=== PATIENT | female | born 1965 ===

== ENCOUNTER → 2021-01-22 11:33 | Outpatient (CLI) | payer OTHER, MEDICAID, SELFPAY ==
--- NOTE | 2021-01-22 11:37 | DI.MRI.S_ITS ---
PROCEDURE: MR HEAD/BRAIN WO/W CON INDICATIONS: Progressive headaches with ongoing nausea, ataxia TECHNIQUE: Noncontrast axial T1 spin echo, axial T2 fast spin echo, sagittal and axial FLAIR, coronal T2 fast spin echo, axial gradient echo, axial diffusion and ADC through the brain. After the administration of contrast, axial and coronal 3D VIBE or T1 spin echo with fat saturation through the brain. COMPARISON: None. FINDINGS: Image quality: Excellent. CSF Spaces: Basal cisterns are patent. No extra-axial fluid collections. Ventricles are normal in size and shape. Brain: No midline shift. No intracranial bleeds or masses. No abnormal intracranial enhancement. The brainstem appears normal. Diffusion-weighted images demonstrate no acute ischemic insults. No chronic ischemic insults. Normal intravascular flow voids are present. Skull and face: Calvarial marrow is normal in signal. Orbits appear normal. Sinuses: Sinuses and mastoids appear clear. IMPRESSION: No evidence of acute ischemia. No acute intracranial signal abnormality or enhancement. Dictated by: Derrick Real M.D. on 01/22/2021 at 12:56 Approved by: Derrick Real M.D. on 01/22/2021 at 12:59
== END ==
PROVIDERS: PCP Family Medicine; Referring Provider Family Medicine; Visit Provider Family Medicine
DX: G44.83 Primary cough headache (principal); M41.85 Other forms of scoliosis, thoracolumbar region; M43.02 Spondylolysis, cervical region; M43.06 Spondylolysis, lumbar region; R11.0 Nausea; R27.0 Ataxia, unspecified
CPT/HCPCS: 70553

== ENCOUNTER → 2021-09-21 08:56 | Outpatient (CLI) | payer OTHER, MEDICAID, SELFPAY ==
[2021-09-21 20:14] LABS: COVID19 - ORCAS (NP or Nasal) Negative (Negative)
== END ==
PROVIDERS: PCP Family Medicine; Visit Provider Physician Assistant
DX: Z20.822 Contact with and (suspected) exposure to COVID-19 (principal)
CPT/HCPCS: U0003

== ENCOUNTER → 2021-09-24 12:33 | Outpatient (CLI) | payer OTHER, MEDICAID, SELFPAY | PROVIDERS: PCP Family Medicine; Visit Provider Family Medicine | DX: J02.9 Acute pharyngitis, unspecified (principal) | CPT/HCPCS: 87070; 87880 ==

== ENCOUNTER → 2021-09-25 08:27 | Outpatient (CLI) | payer OTHER, MEDICAID, SELFPAY ==
[2021-09-25 20:45] LABS: COVID19 - ORCAS (NP or Nasal) Negative (Negative)
== END ==
PROVIDERS: PCP Family Medicine; Visit Provider Family Medicine
DX: J02.9 Acute pharyngitis, unspecified (principal)
CPT/HCPCS: U0003

== ENCOUNTER → 2022-03-22 13:02 | Outpatient (CLI) | payer OTHER, MEDICAID, SELFPAY ==
[2022-03-22 20:18] LABS: COVID19 - ORCAS (NP or Nasal) Negative (Negative)
== END ==
PROVIDERS: PCP Family Medicine; Visit Provider Family Medicine
DX: Z20.822 Contact with and (suspected) exposure to COVID-19 (principal); R51.9 Headache, unspecified; E78.2 Mixed hyperlipidemia; G89.29 Other chronic pain; I10 Essential (primary) hypertension; M54.50 Low back pain, unspecified; Z79.891 Long term (current) use of opiate analgesic; Z79.899 Other long term (current) drug therapy
CPT/HCPCS: U0003

== ENCOUNTER → 2022-09-16 10:35 | Outpatient (CLI) | payer OTHER, MEDICAID, SELFPAY ==
[2022-09-16 19:03] LABS: Add Manual Diff / Slide Review NO; Basophils Absolute Auto 0 /uL (0-100); Basophils Percent Auto 0.7 % (0-2); Eosinophils Absolute Auto 200 /uL (0-450); Eosinophils Percent Auto 2.1 % (2-4); Hematocrit 38.8 % (36-46); Lymphocytes Absolute Auto 2000 /uL (1100-4500); Lymphocytes Percent Auto 26.6 % (25-40); Mean Corpuscular HGB Conc 33.5 % (30-36); Mean Corpuscular Volume 92.4 fL (80-100); Monocytes Absolute Auto 500 /uL (0-900); Monocytes Percent Auto 6.2 % (3-14); Neutrophils Absolute Auto 4800 /uL (1500-7000); Neutrophils Percent Auto 64.4 % (50-75); Platelet Count 350 X10^3/uL (150-400); Red Cell Distribution Width 14.5 % (11.6-14.8); White Blood Cell Count 7.4 X10^3/uL (4.5-11.0)
[2022-09-16 19:22] LABS: Alanine Aminotransferase 51 IU/L (<35); Albumin 4.1 g/dL (3.5-5.0); Albumin Globulin Ratio 1.6 (1.0-2.8); Alkaline Phosphatase 112 U/L (38-126); Aspartate Aminotransferase 56 IU/L (14-36); BUN Creatinine Ratio 33.8 (6-22); Bilirubin Total 0.4 mg/dL (0.2-1.3); Blood Urea Nitrogen 23 mg/dL (7-17); Calcium 8.9 mg/dL (8.4-10.2); Carbon Dioxide 28 mmol/L (22-32); Chloride 97 mmol/L (98-107); Cholesterol 189 mg/dL (140-199); Estimated Glomerular Filt Rate > 60 mL/min (>60); Globulin 2.5 g/dL (1.7-4.1); Glucose 85 mg/dL (70-100); HDL Cholesterol 86 mg/dL (40-60); HEMOLYSIS < 15 (0-50); LDL Cholesterol Calculated 49 mg/dL (<100); Potassium 4.4 mmol/L (3.4-5.1); Sodium 135 mmol/L (137-145); Total Protein 6.6 g/dL (6.3-8.2); Triglycerides 269 mg/dL (35-150)
[2022-09-16 19:49] LABS: TSH w/ Reflex to FT4 1.59 uIU/mL (0.47-4.68)
[2022-09-16 19:54] LABS: Erythrocyte Sedimentation Rate 7 MM/HR (0-20)
[2022-09-16 20:08] LABS: Vitamin B12 375 pg/mL (239-931)
== END ==
PROVIDERS: PCP Family Medicine; Visit Provider Family Medicine
DX: E78.2 Mixed hyperlipidemia (principal); G89.29 Other chronic pain; I10 Essential (primary) hypertension; M54.50 Low back pain, unspecified; R51.9 Headache, unspecified; Z79.891 Long term (current) use of opiate analgesic; Z79.899 Other long term (current) drug therapy
CPT/HCPCS: 80053; 80061; 80305; 82607; 84443; 85025; 85651

== ENCOUNTER → 2023-06-30 11:18 | Outpatient (CLI) | payer OTHER, MEDICAID, SELFPAY | PROVIDERS: PCP Family Medicine; Visit Provider Family Medicine | DX: R30.0 Dysuria (principal); R35.0 Frequency of micturition | CPT/HCPCS: 81002; 87077; 87086; 87186 ==

== ENCOUNTER → 2023-07-07 13:30 | Outpatient (CLI) | payer OTHER, MEDICAID, SELFPAY | PROVIDERS: PCP Family Medicine; Visit Provider Nurse Practitioner Adult Health | DX: N89.8 Other specified noninflammatory disorders of vagina (principal) | CPT/HCPCS: 87798; 87801 ==

== ENCOUNTER 2023-07-21 11:42 | Emergency (ER) | payer OTHER, MEDICAID, SELFPAY ==
[2023-07-21] VITALS (9 sets, daily range): BP systolic 130–163; BP diastolic 83–105; PULSE 75–98; RESP 16; TEMP 36.6; O2SAT 95–100; BMI 16.6
--- NOTE | 2023-07-21 12:15 | ED.ABDPAIN ---
HPI - Abdominal Pain General Chief Complaint: Abdominal Pain Stated Complaint: kidney stones Time Seen by Provider: 07/21/23 11:53 Source: patient Mode of arrival: Ambulatory History of Present Illness HPI narrative: Patient now with a few weeks of symptoms of urinary frequency, dysuria, low-grade fever, vomiting. Lower abdominal pain and bilateral flank pain. She has a remote history of ureterolithiasis. She has extensive abdominal surgery history but no cancer history. She has a couple of surgeries for abdominal adhesions most recently was about 5 years ago. The dysuria is quite a bit better than it was on antibiotics. She is been on 2 courses of antibiotics currently taking cephalexin urine culture result from a urinalysis collected on the 30 of June shows [id number] colony-forming units of Proteus that is pansensitive except nitrofurantoin. A urinalysis from July 17 is normal she is come over to the [facility] today curious about further workup as she does not feel that she has a solid answer as to what is causing her symptoms in the 1st place. No trauma. No diarrhea. Related Data Home Medications Medication Instructions Recorded Confirmed omeprazole 20 mg capsule,delayed 20 mg PO DAILY 11/18/20 07/17/23 release Previous Rx's Medication Instructions Recorded albuterol sulfate 90 mcg/actuation 1 inh inhalation QID PRN 01/16/22 aerosol inhaler bronchospasm #8.5 grams atorvastatin 20 mg tablet 20 mg PO DAILY #90 tabs 07/02/22 losartan 25 mg tablet 25 mg PO DAILY #90 tabs 07/02/22 estradiol 0.5 mg tablet 0.5 mg PO DAILY 23 days #30 tabs 05/15/23 ibuprofen 800 mg tablet 800 mg PO Q8H PRN pain #30 tabs 05/15/23 lidocaine 5 % topical patch 1 patch topical DAILY #15 ea 05/15/23 (Lidoderm) diazepam 5 mg tablet 5 mg PO TID PRN anxiety #90 tabs 06/20/23 metoclopramide HCl 10 mg tablet See Rx Instructions .Route 06/30/23 .COMPLEX #90 tabs estradiol 10 mcg vaginal tablet 10 mcg vaginal 2XW #20 tabs 07/07/23 (Vagifem) oxycodone 5 mg tablet 5 mg PO TID PRN pain #90 tabs 07/07/23 zolpidem 10 mg tablet 10 mg PO BEDTIME #20 tabs 07/07/23 cephalexin 500 mg capsule 1,000 mg (2 x 500 mg) PO BID #40 07/17/23 caps diclofenac sodium 3 % topical gel 1 applic topical BID #100 grams 07/17/23 phenazopyridine 100 mg tablet 100 mg PO TID PRN pain #30 tabs 07/17/23 Allergies Allergy/AdvReac Type Severity Reaction Status Date / Time codeine Allergy Severe Swelling Verified 07/21/23 12:20 of Lip/Tongue/Throat adhesive Allergy Unknown skin turns Verified 07/21/23 12:20 red sulfamethoxazole Allergy Unknown I get Verified 07/21/23 11:46 [From really Sulfamethoxazole-Trimethoprim] sick trimethoprim Allergy Unknown I get Verified 07/21/23 11:46 [From really Sulfamethoxazole-Trimethoprim] sick Patient History Medical History (Updated 07/21/23 @ 14:57 by Tin Mccallum MD) Vaginal pruritus Genital warts Hyperlipidemia Hypertension Atopic dermatitis Scoliosis deformity of spine 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 HEAD: Atraumatic. Normocephalic. EYES: Sclera are clear without icterus. Extraocular movements are full. ENT: No rhinorrhea. Oropharynx is moist. Mouth exam is benign. NECK: Supple. Full range of motion. CARDIOVASCULAR: Normal rate and rhythm without murmur gallop or rub. RESPIRATORY: Clear to auscultation. Breath sounds equal bilaterally. No wheezes, rales, or rhonchi. GASTROINTESTINAL: Abdomen is soft without guarding but she does have some tenderness in the right lower quadrant and in the lower abdomen generally but it is mild. EXTREMITIES: No edema, full range of motion. No obvious trauma. BACK: Normal inspection, no CVA tenderness. NEURO: Nonfocal examination, normal speech, normal gait. SKIN: No rash or erythema of visible areas PSYCH: Normally oriented. Normal range of affect. Appropriate behavior Initial Vital Signs Initial Vital Signs: Vital Signs Temperature 97.9 F 07/21/23 11:46 Pulse Rate 95 H 07/21/23 11:46 Respiratory Rate 16 07/21/23 11:46 Blood Pressure 147/88 H 07/21/23 11:46 Pulse Oximetry 97 07/21/23 11:46 Oxygen Delivery Method Room Air 07/21/23 11:46 Course Orders Ordered: ED Orders 07/21/23 12:17 CT abdomen pelvis w con Stat 07/21/23 12:40 CBC Auto Diff [Complete Blood Count AUTO DIFF] Stat CMP [Comprehensive Metabolic Panel] Stat 07/21/23 13:00 Urinalysis and Microscopic Stat Discontinued Medications Ketorolac Tromethamine (Ketorolac 30 Mg/Ml Vial) 15 mg IV NOW ONE Stop: 07/21/23 12:14 Last Admin: 07/21/23 12:34 Dose: 15 mg Documented By: GUILLERMO Metoclopramide HCl (Metoclopramide 10 Mg/2 Ml Inj) 10 mg IV NOW ONE Stop: 07/21/23 13:45 Last Admin: 07/21/23 13:51 Dose: 10 mg Documented By: GUILLERMO Oxycodone HCl (Oxycodone Ir 5 Mg Tablet) 5 mg PO NOW ONE Stop: 07/21/23 12:14 Last Admin: 07/21/23 12:35 Dose: 5 mg Documented By: GUILLERMO Vital Signs Vital signs: Vital Signs - 8 hr 07/21/23 11:46 07/21/23 12:10 07/21/23 12:10 Temperature 97.9 F Pulse Rate 95 H 96 H Respiratory Rate 16 Blood Pressure 147/88 H 130/83 Pulse Oximetry 97 98 Oxygen Delivery Method Room Air Room Air 07/21/23 12:30 07/21/23 12:30 07/21/23 12:57 Temperature Pulse Rate 91 H Respiratory Rate Blood Pressure 132/85 163/105 H Pulse Oximetry 97 Oxygen Delivery Method Room Air 07/21/23 12:57 07/21/23 13:00 07/21/23 13:00 Temperature Pulse Rate 98 H 92 H Respiratory Rate Blood Pressure 134/90 Pulse Oximetry 98 99 Oxygen Delivery Method 07/21/23 13:39 07/21/23 14:00 07/21/23 14:30 Temperature Pulse Rate 75 97 H 85 Respiratory Rate Blood Pressure Pulse Oximetry 100 98 95 Oxygen Delivery Method MDM - Abdominal Pain Lab Data 07/21/23 12:40 07/21/23 12:40 Labs: Lab Results 07/21/23 07/21/23 Range/Units 12:40 13:00 WBC 5.9 (4.5-11.0) X10^3/uL RBC 3.80 L (4.0-5.2) X10^6/uL Hgb 12.4 (12.0-16.0) g/dL Hct 36.6 (36-46) % MCV 96.2 (80-100) fL MCH 32.5 (26-34) PG MCHC 33.8 (30-36) % RDW 14.2 (11.6-14.8) % Plt Count 291 (150-400) X10^3/uL Neut % (Auto) 82.1 H (50-75) % Lymph % (Auto) 9.8 L (25-40) % [place] % (Auto) 7.3 (3-14) % Eos % (Auto) 0.4 L (2-4) % Baso % (Auto) 0.4 (0-2) % Neut # (Auto) 4800 (4212-6295) /uL Lymph # (Auto) 600 L (8578-6696) /uL [place] # (Auto) 400 (0-900) /uL Eos # (Auto) 0 (0-450) /uL Baso # (Auto) 0 (0-100) /uL Sodium 135 L (137-145) mmol/L Potassium 3.5 (3.4-5.1) mmol/L Chloride 102 (98-107) mmol/L Carbon Dioxide 28 (22-32) mmol/L BUN 6 L (7-17) mg/dL Creatinine 0.56 (0.52-1.04) mg/dL Estimated GFR > 60 (>60) mL/min BUN/Creatinine Ratio 10.7 (6-22) Glucose 137 H (70-100) mg/dL Calcium 9.3 (8.4-10.2) mg/dL Total Bilirubin 0.4 (0.2-1.3) mg/dL AST 28 (14-36) IU/L ALT 18 (<35) IU/L Alkaline Phosphatase 65 (38-126) U/L Total Protein 6.4 (6.3-8.2) g/dL Albumin 3.7 (3.5-5.0) g/dL Globulin 2.7 (1.7-4.1) g/dL Albumin/Globulin Ratio 1.4 (1.0-2.8) Urine Color Yellow Urine Appearance Clear Urine pH 5.5 (4.5-8.0) Ur Specific [place] <=1.005 (1.000-1.035) Urine Protein Negative (Negative) Urine Glucose (UA) Negative (Negative) g/dL Urine Ketones Negative (NEGATIVE) Urine Occult Blood Negative (Negative) Urine Nitrate Negative (Negative) Urine Bilirubin Negative (NEGATIVE) Urine Urobilinogen 0.2 (0.2) E.U./dL Ur Leukocyte Esterase Negative (NEGATIVE) Urine RBC None seen (0-5/HPF) Urine WBC None seen (0-5/HPF) Ur Squamous Epith Cells 0-1 /hpf (0-5/HPF) Urine Bacteria None seen (None) Ur Culture Indicated? Cult not indicated MDM Narrative Medical decision making narrative: 57-year-old woman with at least 3 weeks of urinary tract symptoms. She has 2 urinalyses 1 from the 30 of June which was essentially negative other than minimally elevated leukocyte esterase negative nitrate in minimal blood which culture was noted above as [id number] colony-forming units of Proteus mirabilis but in my estimation this is not a convincing positive culture and may be incidental. I do not know what her original antibiotic was but currently she is taking cephalexin. Her intense dysuria has improved dramatically but she still has lower abdominal pain and significant flank pain and low-grade fevers and is unclear what the underlying etiology of the symptoms is. I think CT imaging is appropriate in this setting along with laboratory data and a repeat urinalysis though I do not expect that current urinalysis to be very enlightening given the current antibiotics. 1455 After detailed evaluation and etiology is not found for this woman's dysuria and pelvic pain and back pain. I think the next appropriate step would be to discontinue antibiotics and allow 48 hours to elapsed with symptom therapy alone. Would recommend repeat urinalysis and evaluation at that time and treatment based on symptoms at presentation in 48 hours. Careful return precautions given. I would consider urologic referral or other consultation if there is no clear-cut urinary tract infection. Discharge Plan Departure Patient Disposition: Home Clinical Impression: Acute flank pain Activity Restrictions/Additional Instructions: After detailed blood work and urinalysis and CT imaging, the cause for your symptoms is not clear. I think you may have an undertreated urinary or kidney infection however there is no objective evidence of this. For now I recommend discontinuing cephalexin and just treating the symptoms with copious oral hydration, ibuprofen 800 mg every 8 hours and oxycodone 5 mg as frequently as every 6 hours. I recommend follow-up in 48 hours for re-evaluation, especially of the urine. Should return sooner for high fever, repeated vomiting or other severe symptoms. Prescriptions: No Action albuterol sulfate 90 mcg/actuation HFA aerosol inhaler 1 inh inhalation QID PRN (Reason: bronchospasm) Qty: 8.5 0RF losartan 25 mg tablet 25 mg PO DAILY Qty: 90 1RF atorvastatin 20 mg tablet 20 mg PO DAILY Qty: 90 1RF diazepam 5 mg tablet 5 mg PO TID PRN (Reason: anxiety) Qty: 90 0RF Rx Instructions: must last 30 days. Release date 06/20/23 metoclopramide HCl 10 mg tablet See Rx Instructions .ROUTE .COMPLEX Qty: 90 1RF Dose Instruction: TAKE ONE TABLET BY MOUTH EVERY 4 TO 6 HOURS NEEDED FOR NAUSEA AND VOMITING Rx Instructions: TAKE ONE TABLET BY MOUTH EVERY 4 TO 6 HOURS NEEDED FOR NAUSEA AND VOMITING zolpidem 10 mg tablet 10 mg PO BEDTIME Qty: 20 0RF oxycodone 5 mg tablet 5 mg PO TID PRN (Reason: pain) Qty: 90 0RF Rx Instructions: must last 30 days. Release date 07/07/23 estradiol [Vagifem] 10 mcg tablet 10 mcg vaginal 2XW Qty: 20 4RF cephalexin 500 mg capsule 1,000 mg PO BID Qty: 40 0RF diclofenac sodium 3 % gel 1 applic topical BID Qty: 100 5RF phenazopyridine 100 mg tablet 100 mg PO TID PRN (Reason: pain) Qty: 30 0RF omeprazole 20 mg capsule,delayed release(DR/EC) 20 mg PO DAILY estradiol 0.5 mg tablet 0.5 mg PO DAILY 23 Days Qty: 30 1RF Rx Instructions: off 5 days; repeat cycle lidocaine [Lidoderm] 5 % adhesive patch,medicated 1 patch topical DAILY Qty: 15 0RF Rx Instructions: leave on most painful area for up to 12 hrs ibuprofen 800 mg tablet 800 mg PO Q8H PRN (Reason: pain) Qty: 30 1RF Referrals: Yunier Le MD [Primary Care Provider] - Stand Alone Forms: Patient Portal/API
--- NOTE | 2023-07-21 12:17 | DI.CT.S_ITS ---
PROCEDURE: CT ABDOMEN PELVIS W CON INDICATIONS: Fever and abdominal pain TECHNIQUE: After the administration of intravenous contrast, axial sections acquired from the lung bases to the pubic symphysis. Coronal and sagittal reformats were performed. For radiation dose reduction, the following was used: automated exposure control, adjustment of mA and/or kV according to patient size. COMPARISON: [facility], CT, CT ABD PELVIS W CON, 02/20/2017, 20:07. FINDINGS: Image quality: Excellent. Lung bases: Minor bibasilar atelectatic changes. Heart: No significant findings. ABDOMEN: Liver: No enhancing mass. Gallbladder: Partially decompressed with a 3 mm stone near the fundus. Biliary ducts: Nondilated. Pancreas: Normal contour. Smooth main pancreatic duct at the upper limits of normal measuring 2.8 mm. Spleen: 2.0 cm superior pole cyst. Otherwise normal enhancement and normal size. Adrenal Glands: No nodules. Kidneys and Ureters: Left lower pole cortical thinning and mild lower pole caliectasis. Kidneys are otherwise normal. No hydroureter. Stomach and Bowel: Stomach and small bowel loops are normal caliber. No small bowel obstruction. The appendix was not seen but there are no secondary signs of focal right lower quadrant inflammation. Semi solid stool is present throughout the colon. No colon wall thickening or inflammation. Peritoneum: No abnormal intraperitoneal fluid. No free air. Ventral Wall: No hernias. Abdominal Nodes: No retroperitoneal or mesenteric adenopathy by size criteria. Vessels: Aorta and inferior vena cava are normal in size. Mild abdominal aortic atherosclerotic calcification. PELVIS: Pelvic Organs: Absent uterus. No adnexal masses. Bladder: Decompressed. No calcifications. Pelvic Nodes: No enlarged lymph nodes. Miscellaneous: No hernias are seen. Bones: Degenerative disc height loss L5-S1 and grade 1 anterolisthesis L4-5. No suspicious bone lesions. IMPRESSION: 1. No acute process. 2. Cholelithiasis and superior pole splenic cyst have developed since the prior exam. No CT evidence of acute cholecystitis. Dictated by: Savannah Alicia M.D. on 07/21/2023 at 14:16 Approved by: Savannah Alicia M.D. on 07/21/2023 at 14:25
[2023-07-21] MEDS: KETOROLAC 30 MG/ML VIAL 15 MG IV (12:34)
[2023-07-21] MEDS: OXYCODONE IR 5 MG TABLET PO (12:35)
[2023-07-21 12:49] LABS: Add Manual Diff / Slide Review NO; Basophils Absolute Auto 0 /uL (0-100); Basophils Percent Auto 0.4 % (0-2); Eosinophils Absolute Auto 0 /uL (0-450); Eosinophils Percent Auto 0.4 % (2-4); Hematocrit 36.6 % (36-46); Hemoglobin 12.4 g/dL (12.0-16.0); Lymphocytes Absolute Auto 600 /uL (1100-4500); Lymphocytes Percent Auto 9.8 % (25-40); Mean Corpuscular HGB Conc 33.8 % (30-36); Mean Corpuscular Hemoglobin 32.5 PG (26-34); Mean Corpuscular Volume 96.2 fL (80-100); Monocytes Absolute Auto 400 /uL (0-900); Monocytes Percent Auto 7.3 % (3-14); Neutrophils Absolute Auto 4800 /uL (1500-7000); Neutrophils Percent Auto 82.1 % (50-75); Platelet Count 291 X10^3/uL (150-400); Red Cell Distribution Width 14.2 % (11.6-14.8); White Blood Cell Count 5.9 X10^3/uL (4.5-11.0)
[2023-07-21 13:03] LABS: Alanine Aminotransferase 18 IU/L (<35); Albumin 3.7 g/dL (3.5-5.0); Albumin Globulin Ratio 1.4 (1.0-2.8); Alkaline Phosphatase 65 U/L (38-126); Aspartate Aminotransferase 28 IU/L (14-36); BUN Creatinine Ratio 10.7 (6-22); Bilirubin Total 0.4 mg/dL (0.2-1.3); Blood Urea Nitrogen 6 mg/dL (7-17); Calcium 9.3 mg/dL (8.4-10.2); Carbon Dioxide 28 mmol/L (22-32); Chloride 102 mmol/L (98-107); Estimated Glomerular Filt Rate > 60 mL/min (>60); Globulin 2.7 g/dL (1.7-4.1); Glucose 137 mg/dL (70-100); HEMOLYSIS < 15 (0-50); Potassium 3.5 mmol/L (3.4-5.1); Sodium 135 mmol/L (137-145); Total Protein 6.4 g/dL (6.3-8.2)
[2023-07-21 13:07] LABS: Appearance Urine UA CLEAR; Bilirubin Urine UA NEGATIVE (NEGATIVE); Color Urine UA YELLOW; Glucose Urine UA NEGATIVE (Negative); Ketones Urine UA NEGATIVE (NEGATIVE); Leukocyte Esterase Urine UA NEGATIVE (NEGATIVE); Nitrite Urine UA NEGATIVE (Negative); Occult Blood Urine UA NEGATIVE (Negative); Protein Urine UA NEGATIVE (Negative); Specific Gravity Urine UA <=1.005 (1.000-1.035); Urobilinogen Urine UA 0.2 E.U./dL (0.2)
[2023-07-21 13:08] LABS: pH Urine UA 5.5 (4.5-8.0)
[2023-07-21 13:14] LABS: Bacteria Urine None Seen; Culture Indicated Urine Cult Not Indicated; RBC Urine None Seen (0-5/HPF); Squamous Epithelial Cell Urine 0-1 /HPF (0-5/HPF); WBC Urine None Seen (0-5/HPF)
[2023-07-21] MEDS: METOCLOPRAMIDE 10 MG/2 ML INJ IV (13:51)
== END 2023-07-21 15:12 | disposition home or self-care (01) ==
PROVIDERS: Emergency Provider Family Medicine Addiction Medicine; PCP Family Medicine
DX: R10.9 Unspecified abdominal pain (principal); R10.2 Pelvic and perineal pain; R30.0 Dysuria
CPT/HCPCS: 36415; 74177; 80053; 81001; 85025; 96374; 96375; 99284; J1885; J2765; Q9967

== ENCOUNTER → 2023-07-24 14:29 | Outpatient (CLI) | payer OTHER, MEDICAID, SELFPAY ==
[2023-07-24 20:51] LABS: Bacteria Urine None Seen; RBC Urine 0-1/HPF (0-5/HPF); Squamous Epithelial Cell Urine 0-1 /HPF (0-5/HPF); WBC Urine None Seen (0-5/HPF)
[2023-07-24 20:52] LABS: Culture Indicated Urine Cult Not Indicated
== END ==
PROVIDERS: PCP Family Medicine; Visit Provider Physician Assistant Medical
DX: Z87.442 Personal history of urinary calculi (principal); N39.0 Urinary tract infection, site not specified; R10.9 Unspecified abdominal pain; R87.619 Unspecified abnormal cytological findings in specimens from cervix uteri
CPT/HCPCS: 81015; 87077; 87086; 87186

== ENCOUNTER → 2023-08-06 16:42 | Outpatient (CLI) | payer OTHER, MEDICAID, SELFPAY | PROVIDERS: PCP Family Medicine; Visit Provider Nurse Practitioner Adult Health | DX: R30.0 Dysuria (principal); R35.0 Frequency of micturition | CPT/HCPCS: 81002; 87086 ==

== ENCOUNTER 2023-12-21 17:11 | Emergency (ER) | payer OTHER, MEDICAID, SELFPAY ==
[2023-12-21 17:44] VITALS: BP 135/86; PULSE 89; RESP 16; TEMP 37; O2SAT 96; BMI 17.4
--- NOTE | 2023-12-21 17:49 | DI.RAD.S_ITS ---
PROCEDURE: XR HAND LT MIN 3V INDICATIONS: possible foreign body to dorsal aspect of hand TECHNIQUE: 3 views of the hand(s) acquired. COMPARISON: None. FINDINGS: Bones: No fractures or dislocations. Carpal bones are normally aligned. No suspicious bony lesions. Soft tissues: No suspicious soft tissue calcifications. IMPRESSION: No acute bony abnormality. No radiopaque foreign body identified. Dictated by: Abner Brown M.D. on 12/21/2023 at 17:15 Approved by: Abner Brown M.D. on 12/21/2023 at 17:15
--- NOTE | 2023-12-21 18:46 | CM.MNRNOTE ---
Patient called to the department, did not want to wait to be seen. Advised patient of risks vs benefit of leaving. Pt acknowledged teaching and left.
--- NOTE | 2023-12-22 02:40 | ED.EXTPRO ---
HPI - Extremity Problem General Chief complaint: Extremity Problem,Nontraumatic Stated complaint: Post op issues rt hand Source: patient Mode of arrival: Ambulatory History of Present Illness HPI Narrative: (left without seeing provider) Related Data Home Medications Medication Instructions Recorded Confirmed omeprazole 20 mg capsule,delayed 20 mg PO DAILY 11/18/20 08/06/23 release Previous Rx's Medication Instructions Recorded atorvastatin 20 mg tablet 20 mg PO DAILY #90 tabs 07/02/22 losartan 25 mg tablet 25 mg PO DAILY #90 tabs 07/02/22 estradiol 0.5 mg tablet 0.5 mg PO DAILY 23 days #30 tabs 05/15/23 ibuprofen 800 mg tablet 800 mg PO Q8H PRN pain #30 tabs 05/15/23 lidocaine 5 % topical patch 1 patch topical DAILY #15 ea 05/15/23 (Lidoderm) diazepam 5 mg tablet 5 mg PO TID PRN anxiety #90 tabs 06/20/23 diclofenac sodium 3 % topical gel 1 applic topical BID #100 grams 07/17/23 phenazopyridine 100 mg tablet 100 mg PO TID PRN pain #30 tabs 07/17/23 estradiol 0.01% (0.1 mg/gram) 0.5 appful vaginal 3XW #42.5 grams 08/06/23 vaginal cream (Estrace) albuterol sulfate 90 mcg/actuation 1 inh inhalation QID PRN 10/06/23 aerosol inhaler bronchospasm #8.5 grams zolpidem 10 mg tablet 10 mg PO BEDTIME #20 tabs 10/20/23 metoclopramide HCl 10 mg tablet See Rx Instructions .Route 11/21/23 .COMPLEX #90 tabs oxycodone 5 mg tablet 5 mg PO TID PRN pain #90 tabs 11/21/23 Allergies Allergy/AdvReac Type Severity Reaction Status Date / Time codeine Allergy Severe Swelling Verified 07/24/23 14:30 of Lip/Tongue/Throat adhesive Allergy Unknown skin turns Verified 07/24/23 14:30 red sulfamethoxazole Allergy Unknown I get Verified 07/24/23 14:30 [From really Sulfamethoxazole-Trimethoprim] sick trimethoprim Allergy Unknown I get Verified 07/24/23 14:30 [From really Sulfamethoxazole-Trimethoprim] sick Patient History Medical History (Updated 12/21/23 @ 18:45 by Thomas Vides RN) Urethral caruncle Atrophic vulvovaginitis Vaginal pruritus Genital warts Hyperlipidemia Hypertension Atopic dermatitis Scoliosis deformity of spine Cervical spondylolysis Acquired spondylolysis of lumbar spine Li's esophagus Slow transit constipation Chronic major depressive disorder, single episode Intestinal obstruction due to adhesions Drug induced constipation Volvulus Colitis Social History Smoking Status: Former smoker Smoking Status: Former smoker alcohol intake frequency: a few times a week Substance Use Type: marijuana Exam Initial Vital Signs Initial Vital Signs: Vital Signs Temperature 98.6 F 12/21/23 17:44 Pulse Rate 89 12/21/23 17:44 Respiratory Rate 16 12/21/23 17:44 Blood Pressure 135/86 12/21/23 17:44 Pulse Oximetry 96 12/21/23 17:44 Oxygen Delivery Method Room Air 12/21/23 17:44 Course Orders Ordered: ED Orders 12/21/23 17:49 XR hand LT min 3V Stat Discharge Plan Departure Patient Disposition: Left Without Being Seen Clinical Impression: Patient left without being seen Prescriptions: No Action losartan 25 mg tablet 25 mg PO DAILY Qty: 90 1RF atorvastatin 20 mg tablet 20 mg PO DAILY Qty: 90 1RF diazepam 5 mg tablet 5 mg PO TID PRN (Reason: anxiety) Qty: 90 0RF Rx Instructions: must last 30 days. Release date 06/20/23 albuterol sulfate 90 mcg/actuation HFA aerosol inhaler 1 inh inhalation QID PRN (Reason: bronchospasm) Qty: 8.5 3RF zolpidem 10 mg tablet 10 mg PO BEDTIME Qty: 20 0RF oxycodone 5 mg tablet 5 mg PO TID PRN (Reason: pain) Qty: 90 0RF Rx Instructions: must last 30 days. Release date 11/21/23 metoclopramide HCl 10 mg tablet See Rx Instructions .ROUTE .COMPLEX Qty: 90 1RF Dose Instruction: TAKE ONE TABLET BY MOUTH EVERY 4 TO 6 HOURS NEEDED FOR NAUSEA AND VOMITING Rx Instructions: TAKE ONE TABLET BY MOUTH EVERY 4 TO 6 HOURS NEEDED FOR NAUSEA AND VOMITING diclofenac sodium 3 % gel 1 applic topical BID Qty: 100 5RF phenazopyridine 100 mg tablet 100 mg PO TID PRN (Reason: pain) Qty: 30 0RF estradiol [Estrace] 0.01 % (0.1 mg/gram) cream 0.5 appful vaginal 3XW Qty: 42.5 3RF omeprazole 20 mg capsule,delayed release(DR/EC) 20 mg PO DAILY estradiol 0.5 mg tablet 0.5 mg PO DAILY 23 Days Qty: 30 1RF Rx Instructions: off 5 days; repeat cycle lidocaine [Lidoderm] 5 % adhesive patch,medicated 1 patch topical DAILY Qty: 15 0RF Rx Instructions: leave on most painful area for up to 12 hrs ibuprofen 800 mg tablet 800 mg PO Q8H PRN (Reason: pain) Qty: 30 1RF
== END 2023-12-21 18:43 | disposition left against medical advice (07) ==
PROVIDERS: Emergency Provider Emergency Medicine; PCP Family Medicine
DX: M79.642 Pain in left hand (principal)
CPT/HCPCS: 73130; 99281

== ENCOUNTER → 2024-11-02 15:03 | Outpatient (CLI) | payer OTHER, SELFPAY ==
--- NOTE | 2024-11-02 15:04 | DI.MRI.S_ITS ---
PROCEDURE: MR LUMBAR SPINE WO CON INDICATIONS: scoliosis chronic back pain radiating TECHNIQUE: Noncontrast sagittal T1 spin echo and T2 fast echo, sagittal STIR, and T2 fast spin echo through the lumbar spine. In cases with scoliosis, additional coronal T2 fast spin echo may be performed. COMPARISON: [facility], CT, CT ABDOMEN PELVIS W CON, 07/21/2023, 13:27. CR, XR LUMBAR SPINE 2-3V, 03/08/2021, 14:40. FINDINGS: Image quality: Excellent. Alignment and Curvature: There is scoliotic curvature with apex at L2-3. Trace retrolisthesis of L2 on L3, L5 on S1, anterolisthesis of L4 on L5. Bone Marrow: Marrow is of normal overall signal. Increased signal is present at L2 on T2 and STIR with mild decreased signal on T1. Moderate reactive endplate changes are present at L5-S1. No acute vertebral body compression fractures. Spinal Cord: Conus medullaris terminates at the L1 level. Visualized cord demonstrates normal signal and size. Paraspinous Soft Tissues: No paravertebral masses. Poorly visualized focus of increased T2 within the left upper quadrant. This corresponds to splenic cyst identified on CT. T12-L1: No disc bulge, spinal stenosis or foraminal narrowing. L1-L2: No disc bulge, spinal stenosis or foraminal narrowing. L2-L3: No disc bulge, spinal stenosis or foraminal narrowing. L3-L4: Minimal disc bulge without spinal stenosis or foraminal narrowing. Mild facet hypertrophy with epidural lipomatosis. L4-L5: Mild disc bulge with moderate to severe spinal stenosis. Moderate bilateral foraminal narrowing with facet and ligamentum flavum hypertrophy. L5-S1: Mild disc bulge without spinal stenosis. Moderate left and mild right foraminal narrowing with facet and ligamentum flavum hypertrophy. IMPRESSION: Spinal stenosis most prominent L4-5 secondary to disc bulge with contributing effect of facet/ligamentum flavum arthropathy. Multilevel foraminal narrowing most severe at L4-5 secondary to facet/ligamentum flavum arthropathy as well as scoliotic curvature. Dictated by: Radha Velasquez M.D. on 11/02/2024 at 16:52 Approved by: Radha Velasquez M.D. on 11/02/2024 at 16:57
== END ==
PROVIDERS: PCP Family Medicine; Referring Provider Family Medicine; Visit Provider Family Medicine
DX: M41.85 Other forms of scoliosis, thoracolumbar region (principal); M43.06 Spondylolysis, lumbar region; M48.061 Spinal stenosis, lumbar region without neurogenic claudication; M48.07 Spinal stenosis, lumbosacral region; M51.360 Other intervertebral disc degeneration, lumbar region with discogenic back pain only; M51.370 Other intervertebral disc degeneration, lumbosacral region with discogenic back pain only; M47.816 Spondylosis without myelopathy or radiculopathy, lumbar region; M47.817 Spondylosis without myelopathy or radiculopathy, lumbosacral region; G89.29 Other chronic pain
CPT/HCPCS: 72148